=== PATIENT | female | born 1970 | race Asian ===

== ENCOUNTER 2018-11-29 02:19 | Emergency (ER) | payer MEDICAID, OTHER ==
[~2018-11-29] VITALS: Ht 157.5 cm; Wt 63.5 kg
== END 2018-11-29 03:07 | disposition home or self-care (01) ==
LOC: ER 02:19
DX: S50.871A Other superficial bite of right forearm, initial encounter (principal); W54.0XXA Bitten by dog, initial encounter
CPT/HCPCS: 99283